=== PATIENT | female | born 1960 | race Caucasian/White ===

== ENCOUNTER 2020-10-03 00:07 | Inpatient (IN) | payer OTHER ==
[~2020-10-03] VITALS: Ht 157.5 cm; Wt 90.7 kg
[2020-10-04] MEDS ORDERED: LISINOPRIL30 MG PO (02:44)
[2020-10-04] MEDS ORDERED: BUPRENORPHIN-N1 EACH PO (02:44)
[2020-10-04] MEDS ORDERED: ATORVASTATIN CA20 MG PO (02:45)
[2020-10-04] MEDS ORDERED: DULOXETINE HCL30 MG PO (02:45)
[2020-10-04] MEDS ORDERED: HYDROXYZINE PAM25 MG PO (02:45)
[2020-10-04] MEDS ORDERED: LAMOTRIGINE100 MG PO (02:46)
[2020-10-04] MEDS ORDERED: KLONOPIN TAB 00.5 MG PO (02:46)
[2020-10-04] MEDS ORDERED: GABAPENTIN600 MG PO (02:46)
[2020-10-04] MEDS ORDERED: ELAVIL 25 MG TA25 MG PO (02:46)
[2020-10-04] MEDS ORDERED: OMEPRAZOLE20 MG PO (02:47)
[2020-10-04] MEDS ORDERED: CYMBALTA 30 MG30 MG PO (02:49)
[2020-10-04 05:48] LABS: RED BLOOD COUNT 2.66 M/UL (4.00-5.10); WHITE BLOOD COUNT 7.9 K/UL (4.5-11.0)
[2020-10-04 05:54] LABS: HEMOGLOBIN 6.4 gm/dl (12.3-15.3)
--- NOTE | 2020-10-04 16:03 | NUR ---
[id number] PATIENT TAKEN TO OR
[2020-10-04 19:38] LABS: HEMOGLOBIN 8.5 gm/dl (12.3-15.3)
[2020-10-05 02:56] LABS: HEMOGLOBIN 8.1 gm/dl (12.3-15.3); RED BLOOD COUNT 3.31 M/UL (4.00-5.10); WHITE BLOOD COUNT 6.3 K/UL (4.5-11.0)
[2020-10-05 16:27] LABS: HEMOGLOBIN 8.5 gm/dl (12.3-15.3)
[2020-10-06 05:33] LABS: HEMOGLOBIN 8.6 gm/dl (12.3-15.3); RED BLOOD COUNT 3.44 M/UL (4.00-5.10); WHITE BLOOD COUNT 5.6 K/UL (4.5-11.0)
[2020-10-06 05:55] LABS: BUN/CREATININE RATIO 23 (0-10)
--- NOTE | 2020-10-06 10:30 | NUR ---
PT ROOM AIR SAT STAYED ABOVE 92%
[2020-10-06] MEDS ORDERED: PROTONIX40 MG PO (11:21)
[2020-10-06] MEDS ORDERED: VENOFER100 MG/5 M IV (12:28)
== END 2020-10-06 16:21 | disposition home or self-care (01) | DRG 377 ==
LOC: MED SURG 4 00:07
PROVIDERS: Internal Medicine; Internal Medicine Gastroenterology; ADMIT Internal Medicine
PROC: XW033E5 Introduction of Remdesivir Anti-infective into Peripheral Vein, Percutaneous Approach, New Technology Group 5 (ICD-10-PCS; 2020-10-04)
PROC: 30233N1 Transfusion of Nonautologous Red Blood Cells into Peripheral Vein, Percutaneous Approach (ICD-10-PCS; 2020-10-04)
PROC: 0DJ08ZZ Inspection of Upper Intestinal Tract, Via Natural or Artificial Opening Endoscopic (ICD-10-PCS; principal; 2020-10-04 15:45)
DX: K25.4 Chronic or unspecified gastric ulcer with hemorrhage (principal); U07.1 COVID-19; D62 Acute posthemorrhagic anemia; F11.20 Opioid dependence, uncomplicated; K44.9 Diaphragmatic hernia without obstruction or gangrene; T18.2XXA Foreign body in stomach, initial encounter; D50.9 Iron deficiency anemia, unspecified; F41.9 Anxiety disorder, unspecified; F32.9 Major depressive disorder, single episode, unspecified; G89.29 Other chronic pain; M54.9 Dorsalgia, unspecified; I10 Essential (primary) hypertension; E78.5 Hyperlipidemia, unspecified; G62.9 Polyneuropathy, unspecified; M79.7 Fibromyalgia; Z86.73 Personal history of transient ischemic attack (TIA), and cerebral infarction without residual deficits; Z90.49 Acquired absence of other specified parts of digestive tract; Z90.710 Acquired absence of both cervix and uterus; Z79.899 Other long term (current) drug therapy
CPT/HCPCS: 36415; 36430; 36600; 71045; 80048; 82803; 83540; 83550; 85014; 85018; 85025; 85027; 85610; 85730; 86850; 86900; 86901; 86920; C9113; J1756; J2001; J2704; J3010; J7030; J7050; P9016